=== PATIENT | female | born 1950 | race Caucasian/White ===

== ENCOUNTER 2023-12-31 15:04 | Emergency (ER) | payer OTHER ==
--- OUTSIDE RECORDS SUMMARY | 2023-12-31 15:08 | XMS REPORT | Continuity of Care Document ---
Author Name Unknown Address [address] [facility]. [address] [place] [address] [facility] thconnect Address [address] [facility] [address] [place] [address] Care Team Providers Care Communications Systems Engineer Name Role Phone BRYCE MCDERMOTT Primary Care Physician Unavailab Bryce See Attending Clinician Unavailable ANU ENAMORADO Attending Clinician Unavailable ANU ENAMORADO Attending Clinician Unavailable Thomas Medina Attending Clinician UnavailSMOOTH Shaw Attending Clinician Unavailnicky [place] DIRECTOR OF SPORTS PERFORMANCE, Smooth Attending Clinician [phone] Unknown, Attending Attending Clinician UnavailSherin Orellana PA-C Attending Clinician [phone] SHERIN LEWIS Attending Clinician Unavailable Doctor Unassigned, [place] Attending Clinician U JOSE RAMON Potter Attending Clinician Jose Ramon De La Rosa MD Attending Clinician + [phone] Abby Sinclair Attending Clinician [phone] ABBY LEMON Attending Clinician Unavailable Brayden Miranda MA Attending Clinician Berna Sanders RN, Melany Ornelas Attending Clinician Unavailab Antony Brower Db Test Attending Clinician UnavailBrayden Flores MD Attending Clinician [phone] BRAYDEN SUÁREZ Attending Clinician Unavailable Bob Delarosa Attending Clinician Unavailab JAY Barrientos Attending Clinician Unavail able Nurse, [facility] Pob Immunization Attending Clinician Unavailable Jay Velasquez DO Attending Clinician [phone] CAITLIN CERVANTES Attending Clinician Unavailable Caitlin Cervantes MD Attending Clinician [phone] Linda Larose MA Attending Clinician Unavailnicky Trivedi RN, Enedina Shaikh Attending Clinician Unavailnicky Bergeron, [facility] Fam Pob I Attending Clinician Unavailab Kellie Xiong Attending Clinician [phone] JAGDISH COVINGTON Attending Clinician Unavailable KELLIE HSU Attending Clinician Unavailable Vero DIRECTOR OF SPORTS PERFORMANCE, Cyn Attending Clinician [phone] Danni Rajput Attending Clinician + [phone] DANNI ARANGO Attending Clinician Unavailab Dora Castillo Attending Clinician [phone] DORA BAEZ Attending Clinician Unavailable Only, Web Test Attending Clinician Unavailable Jagdish Covington MD Attending Clinician [phone] BRYCE MCDERMOTT Admitting Clinician Unavailable ANU ENAMORADO Admitting Clinician Unavailable JOSE RAMON FULTON Admitting Clinician Jose Ramon De La Rosa MD Admitting Clinician + [phone] Payers Payer Name Policy Type Policy Number Effective Date Expirati on Date Source WELLJOSH/VIDYA MCARE ADV CHOICE PPO [id number] 2020 00:00:00 Problems Condition Name Condition Details Condition Category Status Onset Date Resolution Date Last Treatment Date Treating Clinician Comments Source No known active problems No known active problems Disease [facility] Allergies, Adverse Reactions, Alerts Allergy Name Allergy Type Status Severity Reaction(s) Onset Date Inactive Date Treating Clinician Comments Source NO KNOWN ALLERGIE S Drug Class Active [facility] Social History Social Habit Start Date Stop Date Quantity Comments Source History SDOH Alcohol Std Drinks [facility] History SDOH Alcohol Binge [facility] Gender identity [facility] Sexual orientation [facility] History SDOH Alcohol Frequency [facility] Alcohol intake 2023-02-06 00:00:00 2023-02-06 00:00:00 .29 /d [facility] History of Social function 2022-12-31 00:00:00 2022-12-31 00:00:00 [facility] Exposure to SARS-CoV-2 (event) 2021-12-15 00:00:00 2021-12-25 08:41:00 Not sure [facility] Tobacco use and exposure 2021-10-12 00:00:00 2021-10-12 00:00:00 Smokeless tobacco non-user [facility] Alcohol Comment 2020-12-11 00:00:00 2020-12-11 00:00:00 glass of wine x's 2 days a week [facility] Sex Ass[birth year] At 1950 00:00:00 1950 00:00:00 [facility] Smoking Status Start Date Stop Date Source Tobacco smoking consumption unknown [facility] Never smoked tobacco [facility] Medications Ordered Medication Name Filled Medication Name Start Date Stop Date Current Medication? Ordering Clinician Indication Dosage Frequency Signature (SIG) Comments Components Source ALBUTEROL INHALE 2022-02 07:57: 09 12-24 00:00 :00 No Inhale. [facility] dexamethaso ne (DECADRON) injection 10 mg 2022-02 17:00: 00 12-21 16:12 :00 No [id number] 10mg [facility] triamcinolo ne acetonide 0.1 % cream 2022-02 00:00: 00 12-31 00:00 :00 No [id number] Apply to area(s) 2 (two) times daily. [facility] hydrOXYzine 50 mg tablet 2022-02 00:00: 00 12-29 05:59 :00 No [id number] 50mg Take 1 tablet by mouth 3 (three) times daily as needed for Itching for up to 7 days. [facility] levothyroxi ne 25 mcg tablet 2022-02 0-04 00:00: 00 Yes 25ug Take 1 tablet by mouth. [facility] ibuprofen 400 mg tablet 8-10 00:00: 00 Yes [id number] 400mg Take 1 tablet by mouth every 8 (eight) hours as needed for Pain (scale 4-6). [facility] cetirizine 10 mg tablet 8-10 00:00: 00 12-31 00:00 :00 No [id number] 10mg Take 1 tablet by mouth in the morning. [facility] bromphenira mine-pseudo ephedrine-D M (BROMFED DM) 2-30-10 mg/5 mL syrup 09-26 00:00: 00 12-24 00:00 :00 No [id number] 5mL Take 5 mL by mouth 3 (three) times daily as needed for Cold symptoms. [facility] ALBUTEROL INHALE 2021-02 1 09:03: 37 Yes Inhale. [facility] lactated ringers IV infusion 1,000 mL 2021-02 020 16:15: 00 12-06 16:00 :00 No 1000mL at 42 mL/hr, 1,000 mL, IV Infusion, ONCE, 1 dose, On Jackelyn 12/06/21 at 1115, Routine, [facility] Pre-op [facility] ALBUTEROL INHALE 2021-02 020 13:29: 28 Yes Inhale. [facility] ALBUTEROL INHALE 10-12 12:36: 39 Yes Inhale. [facility] ALBUTEROL INHALE 2020-02 105 09:42: 26 Yes Inhale. [facility] desoximetas one 0.25 % cream 2020-02 0 00:00: 00 Yes [facility] Immunizations Ordered Immunization Name Filled Immunization Name Date Status Comments Source SARS-COV-2 COVID-19 PFIZER VACCINE 2021-01-05 00:00:00 Completed [facility] SARS-COV-2 COVID-19 PFIZER VACCINE 2021-01-05 00:00:00 Completed [facility] SARS-COV-2 COVID-19 PFIZER VACCINE 2021-01-05 00:00:00 Completed [facility] SARS-COV-2 COVID-19 PFIZER VACCINE 2021-01-05 00:00:00 Completed [facility] SARS-COV-2 COVID-19 PFIZER VACCINE 2021-01-05 00:00:00 Completed [facility] SARS-COV-2 COVID-19 PFIZER VACCINE 2021-01-05 00:00:00 Completed [facility] SARS-COV-2 COVID-19 PFIZER VACCINE 2021-01-05 00:00:00 Completed [facility] SARS-COV-2 COVID-19 PFIZER VACCINE 2021-01-05 00:00:00 Completed [facility] SARS-COV-2 COVID-19 PFIZER VACCINE 2021-01-05 00:00:00 Completed [facility] SARS-COV-2 COVID-19 PFIZER VACCINE 2021-01-05 00:00:00 Completed [facility] SARS-COV-2 COVID-19 PFIZER VACCINE 2021-01-05 00:00:00 Completed [facility] SARS-COV-2 COVID-19 PFIZER VACCINE 2021-01-05 00:00:00 Completed [facility] Influenza Virus Vaccine,quad Im,preserve Free 2020-12-22 00:00:00 Completed [facility] Influenza Virus Vaccine,quad Im,preserve Free 2020-12-22 00:00:00 Completed [facility] Influenza Virus Vaccine,quad Im,preserve Free 652020-12-22 00:00:00 Completed [facility] Influenza Virus Vaccine,quad Im,preserve Free 2020-12-22 00:00:00 Completed [facility] Influenza Virus Vaccine,quad Im,preserve Free 652020-12-22 00:00:00 Completed [facility] Influenza Virus Vaccine,quad Im,preserve Free 2020-12-22 00:00:00 Completed [facility] Influenza Virus Vaccine,quad Im,preserve Free 652020-12-22 00:00:00 Completed [facility] Influenza Virus Vaccine,quad Im,preserve Free 2020-12-22 00:00:00 Completed [facility] Influenza Virus Vaccine,quad Im,preserve Free 65+ 2020-12-22 00:00:00 Completed [facility] Influenza Virus Vaccine,quad Im,preserve Free 652020-12-22 00:00:00 Completed [facility] Influenza Virus Vaccine,quad Im,preserve Free 65+ 2020-12-22 00:00:00 Completed [facility] Influenza Virus Vaccine,quad Im,preserve Free 652020-12-22 00:00:00 Completed [facility] SARS-COV-2 COVID-19 NORMA/J&J VACCINE 2020-05-02 00:00:00 Completed [facility] SARS-COV-2 COVID-19 NORMA/J&J VACCINE 2020-05-02 00:00:00 Completed [facility] SARS-COV-2 COVID-19 NORMA/J&J VACCINE 2020-05-02 00:00:00 Completed [facility] SARS-COV-2 COVID-19 NORMA/J&J VACCINE 2020-05-02 00:00:00 Completed [facility] SARS-COV-2 COVID-19 NORMA/J&J VACCINE 2020-05-02 00:00:00 Completed [facility] SARS-COV-2 COVID-19 NORMA/J&J VACCINE 2020-05-02 00:00:00 Completed [facility] SARS-COV-2 COVID-19 NORMA/J&J VACCINE 2020-05-02 00:00:00 Completed [facility] SARS-COV-2 COVID-19 NORMA/J&J VACCINE 2020-05-02 00:00:00 Completed [facility] SARS-COV-2 COVID-19 NORMA/J&J VACCINE 2020-05-02 00:00:00 Completed [facility] SARS-COV-2 COVID-19 NORMA/J&J VACCINE 2020-05-02 00:00:00 Completed [facility] SARS-COV-2 COVID-19 NORMA/J&J VACCINE 2020-05-02 00:00:00 Completed [facility] SARS-COV-2 COVID-19 NORMA/J&J VACCINE 2020-05-02 00:00:00 Completed [facility] Influenza High Dose Quad 2019-12-23 00:00:00 Completed [facility] Influenza High Dose Quad 2019-12-23 00:00:00 Completed [facility] Influenza High Dose Quad 2019-12-23 00:00:00 Completed [facility] Influenza High Dose Quad 2019-12-23 00:00:00 Completed [facility] Influenza High Dose Quad 2019-12-23 00:00:00 Completed [facility] Influenza High Dose Quad 2019-12-23 00:00:00 Completed [facility] Influenza High Dose Quad 2019-12-23 00:00:00 Completed [facility] Influenza High Dose Quad 2019-12-23 00:00:00 Completed [facility] Influenza High Dose Quad 2019-12-23 00:00:00 Completed [facility] Influenza High Dose Quad 2019-12-23 00:00:00 Completed [facility] Influenza High Dose Quad 2019-12-23 00:00:00 Completed [facility] Influenza High Dose Quad 2019-12-23 00:00:00 Completed [facility] Influenza High Dose Quad Unknown Completed [facility] Influenza High Dose Quad Unknown Completed [facility] SARS-COV-2 COVID-19 NORMA/J&J VACCINE Unknown [facility] Influenza Virus Vaccine,quad Im,preserve Free 65+ (FLUAD) Unknown Completed [facility] SARS-COV-2 COVID-19 PFIZER VACCINE Unknown Completed [facility] Influenza High Dose Quad Unknown Completed [facility] SARS-COV-2 COVID-19 NORMA/J&J VACCINE Unknown Completed [facility] Influenza Virus Vaccine,quad Im,preserve Free 65+ (FLUAD) Unknown Completed [facility] SARS-COV-2 COVID-19 PFIZER VACCINE Unknown Completed [facility] Influenza High Dose Quad Unknown Completed [facility] SARS-COV-2 COVID-19 NORMA/J&J VACCINE Unknown Completed [facility] Influenza Virus Vaccine,quad Im,preserve Free 65+ (FLUAD) Unknown Completed [facility] SARS-COV-2 COVID-19 PFIZER VACCINE Unknown Completed [facility] Vital Signs Vital Name Observation Time Observation Value Comments S ource Systolic blood pressure 2022-12-31 15:33:00 133 mm[Hg] [facility] Diastolic blood pressure 2022-12-31 15:33:00 67 mm[Hg] [facility] Heart rate 2022-12-31 15:33:00 73 /min Unive [facility] Body temperature 2022-12-31 15:33:00 36.06 Yoanna [facility] Respiratory rate 2022-12-31 15:33:00 17 /min [facility] Body height 2022-12-31 15:33:00 160 cm [facility] Body weight 2022-12-31 15:33:00 69.037 kg [facility] BMI 2022-12-31 15:33:00 26.96 kg/m2 [facility] Systolic blood pressure 2022-12-21 15:41:00 150 mm[Hg] [facility] Diastolic blood pressure 2022-12-21 15:41:00 77 mm[Hg] [facility] Heart rate 2022-12-21 15:40:00 81 /min Unive [facility] Body temperature 2022-12-21 15:40:00 37 Yoanna [facility] Respiratory rate 2022-12-21 15:40:00 14 /min [facility] Body height 2022-12-21 15:40:00 165.1 cm [facility] Body weight 2022-12-21 15:40:00 69.4 kg [facility] BMI 2022-12-21 15:40:00 25.46 kg/m2 [facility] Oxygen saturation in Arterial blood by Pulse oximetry 2022-12-21 15:40:00 99 /min [facility] Systolic blood pressure 2022-09-26 14:21:00 153 mm[Hg] [facility] Diastolic blood pressure 2022-09-26 14:21:00 68 mm[Hg] [facility] Heart rate 2022-09-26 14:20:00 89 /min Un[facility] Body temperature 2022-09-26 14:20:00 37.06 Yoanna [facility] Respiratory rate 2022-09-26 14:20:00 18 /min [facility] Body height 2022-09-26 14:20:00 165.1 cm [facility] Body weight 2022-09-26 14:20:00 69.446 kg [facility] BMI 2022-09-26 14:20:00 25.48 kg/m2 [facility] Oxygen saturation in Arterial blood by Pulse oximetry 2022-09-26 14:20:00 96 /min [facility] Systolic blood pressure 2021-12-25 15:02:00 132 mm[Hg] [facility] Diastolic blood pressure 2021-12-25 15:02:00 73 mm[Hg] [facility] Heart rate 2021-12-25 15:02:00 75 /min Un[facility] Body temperature 2021-12-25 15:02:00 36.83 Yoanna [facility] Respiratory rate 2021-12-25 15:02:00 18 /min [facility] Body height 2021-12-25 15:02:00 165.1 cm [facility] Body weight 2021-12-25 15:02:00 69.4 kg [facility] BMI 2021-12-25 15:02:00 25.46 kg/m2 [facility] Heart rate 2021-12-06 18:00:00 70 /min [facility] Body temperature 2021-12-06 18:00:00 36.61 Yoanna [facility] Respiratory rate 2021-12-06 18:00:00 17 /min [facility] Oxygen saturation in Arterial blood by Pulse oximetry 2021-12-06 18:00:00 100 /min [facility] Systolic blood pressure 2021-12-06 17:55:00 124 mm[Hg] [facility] Diastolic blood pressure 2021-12-06 17:55:00 64 mm[Hg] [facility] Body height 2021-11-23 17:42:00 165.1 cm [facility] weight 2021-11-23 17:42:00 68.1 kg [facility] BMI 2021-11-23 17:42:00 24.98 kg/m2 [facility] Systolic blood pressure 2021-10-12 17:37:00 114 mm[Hg] [facility] Diastolic blood pressure 2021-10-12 17:37:00 76 mm[Hg] [facility] Heart rate 2021-10-12 17:37:00 74 /min [facility] Body temperature 2021-10-12 17:37:00 37.11 Yoanna [facility] Respiratory rate 2021-10-12 17:37:00 20 /min [facility] Body height 2021-10-12 17:37:00 165.1 cm [facility] Body weight 2021-10-12 17:37:00 68.085 kg [facility] BMI 2021-10-12 17:37:00 24.98 kg/m2 [facility] Oxygen saturation in Arterial blood by Pulse oximetry 2021-10-12 17:37:00 97 /min [facility] Procedures Procedure Date / Time Performed Performing Clinician Source BI SCREENING TOMOSYNTHESIS BILATERAL 2023-02-06 15:55:00 Anu [facility] POCT MOLECULAR STREP 2022-09-26 14:18:00 Unknown, Attgloria mccabe [facility] PATIENT FINANCIAL POLICY 2022-09-26 14:11:09 Doctor Unassigned, [place] [facility] ASSIGNMENT OF BENEFITS 2021-12-25 14:40:47 Docto r Unassigned, [place] [facility] COLONOSCOPY (ENDO) 2021-12-06 16:56:24 Bryce Mcdermott [facility] PATIENT QUESTIONNAIRE 2021-12-06 05:01:00 Doctor Unassigned, [place] [facility] EXTERNAL PROVIDER RECORDS 2021-10-15 05:01:00 Doctor Unassigned, [place] [facility] POCT URINALYSIS 2021-10-12 17:48:[address] [facility] EXTERNAL PAP SMEAR 2019-09-16 10:19:00 Doctor Un assigned, [place] [facility] Encounters Start Date/Time End Date/Time Encounter Type Admission Type Attending Clinicians Care Facility Care Department Encounter ID Source 2023-11-12 11:14:01 Outpatient Bryce Mcdermott [facility] [id number] [place] [facility] 2024-01-01 15:45:00 2024-01-01 15:45:00 Outpatient R AVERYANU MARRUFO [facility] [id number] [facility] 2024-01-01 10:30:00 2024-01-01 10:30:00 Outpatient R ADANU MARRUFO [facility] [id number] [facility] 2023-05-23 11:55:00 2023-05-23 11:55:00 Outpatient Delmar Aragonory [facility] [id number] [facility] 2023-02-06 09:07:50 2023-02-06 23:59:00 Outpatient R AVERYANU MARRUFO [facility] [id number] [facility] 2023-02-06 09:07:50 2023-02-06 23:59:00 Hospital Encounter AdAnu marrufo [facility] 1..840.114 350.1.13.10 4.2.7.2.686 [id number] [facility] 2023-01-30 00:00:00 2023-01-30 00:00:00 Outpatient R ANU ENAMORADO [facility] [id number] [facility] 2022-12-31 09:30:00 2022-12-31 10:25:42 Outpatient R ANU ENAMORADO [facility] [id number] [facility] 2022-12-31 09:30:00 2022-12-31 10:25:42 Office Visit AveryAnu marrufo [facility] 1..840.114 350.1.13.10 4.2.7.2.686 [id number] [facility] 2022-12-21 10:20:00 2022-12-21 11:34:21 Outpatient R SMOOTH TIDWELL [facility] [id number] [facility] 2022-12-21 10:20:00 2022-12-21 11:34:21 Urgent Care [place] Unknown, Attending [facility] 1..840.114 350.1.13.10 4.2.7.2.686 [id number] [facility] 2022-10-01 00:00:00 2022-10-01 00:00:00 [facility]phone [facility] 1..840.114 350.1.13.10 4.2.7.2.686 [id number] [facility] 2022-09-26 09:20:00 2022-09-26 09:35:12 Outpatient R SHERIN LEWIS [facility] [id number] [facility] 2022-09-26 09:20:00 2022-09-26 09:35:12 Urgent Care Sherin Lewis Unknown, Attending [facility] 1..840.114 350.1.13.10 4.2.7.2.686 [id number] [facility] 2022-09-26 00:00:00 2022-09-26 00:00:00 Orders Only Doctor Unassigned, [place] [facility] 1.840.114 350.1.13.10 4.2.7.2.686 [id number] [facility] 2022-02-04 08:49:11 2022-02-04 23:59:00 Outpatient R ANU ENAMORADO [facility] [id number] [facility] 2022-02-04 08:49:11 2022-02-04 23:59:00 Hospital Encounter Anu Enamorado [facility] 1.0.114 350.1.13.10 4.2.7.2.686 [id number] [facility] 2021-12-25 09:00:00 2021-12-25 09:39:35 [facility] [id number] [facility] 2021-12-25 09:00:00 2021-12-25 09:39:35 Office Visit Anu Enamorado [facility] 1..114 350.1.13.10 4.2.7.2.686 [id number] [facility] 2021-12-25 00:00:00 2021-12-25 00:00:00 Orders Only Doctor Unassigned, [place] [facility] 1.0.114 350.1.13.10 4.2.7.2.686 [id number] [facility] 2021-12-06 10:45:00 2021-12-06 13:13:00 Outpatient R JOSE RAMON C[facility]Y [facility] [id number] [facility] 2021-12-06 10:45:00 2021-12-06 13:13:00 Hospital Encounter Jose Ramon Cassidy [facility] 1.114 350.1.13.10 4.2.7.2.686 [id number] [facility] 2021-12-06 00:00:00 2021-12-06 00:00:00 Orders Only Doctor Unassigned, [place] [facility] 1..114 350.1.13.10 4.2.7.2.686 [id number] [facility] 2021-12-05 07:45:00 2021-12-05 07:45:00 Outpatient R JOSE RAMON CASSIDY [facility] [id number] [facility] 2021-10-12 12:20:00 2021-10-12 12:40:00 [facility] 1.84.114 350.1.13.10 4.2.7.2.686 [id number] [facility] 2021-10-12 12:20:00 2021-10-12 12:20:00 [facility] [id number] [facility] 2021-05-04 00:00:00 2021-05-04 00:00:00 Pre Visit Outreach Brayden Miranda 1.84.114 350.1.13.10 4.2.7.2.686 [id number] [facility] 2021-02-16 00:00:00 2021-02-16 00:00:00 Letter (Out) Melany Sanders [facility] 1.114 350.1.13.10 4.2.7.2.686 [id number] [facility] 2021-02-14 16:00:00 2021-02-14 16:25:26 Laboratory Only Only, Ang Db Test Unknown, Attending Juvencio [facility] 1.84.114 350.1.13.10 4.2.7.2.686 [id number] [facility] 2021-02-14 16:00:00 2021-02-14 16:00:00 Outpatient R BRAYDEN SUÁREZ [facility] [id number] [facility] 2021-02-06 00:00:00 2021-02-06 00:00:00 Pre Visit Outreach Bob Delarosa [facility] 1.114 350.1.13.10 4.2.7.2.686 [id number] [facility] 2021-01-05 13:50:00 2021-01-05 13:50:00 Outpatient R JAY VELASQUEZ [facility] [id number] [facility] 2021-01-05 13:38:39 2021-01-05 13:39:15 Imm/Inj Visit Nurse, Nita Quezada Immunizatio Jay [facility] 1.2.840.114 350.1.13.10 4.2.7.2.686 [id number] [facility] 2020-12-22 09:30:00 2020-12-22 10:15:08 Outpatient R CAITLIN CERVANTES [facility] [id number] [facility] 2020-12-22 09:30:00 2020-12-22 10:15:08 Outpatient R CAITLIN CERVANTES [facility] [id number] [facility] 2020-12-22 09:19:21 2020-12-22 10:15:08 Office Visit Caitlin Cervantes [facility] 1.2.840.114 350.1.13.10 4.2.7.2.686 [id number] [facility] 2020-12-12 13:01:58 2020-12-12 23:59:00 Hospital Encounter Caitlin Cervantes [facility] 1.2.840.114 350.1.13.10 4.2.7.2.686 [id number] [facility] 2020-12-12 13:00:00 2020-12-12 13:00:00 Hospital Encounter Caitlin Cervantes [facility] 1.2.840.114 350.1.13.10 4.2.7.2.686 [id number] [facility] 2020-12-12 00:00:00 2020-12-12 00:00:00 Outpatient R CAITLIN CERVANTES [facility] [id number] [facility] 2020-12-11 00:00:00 2020-12-11 00:00:00 Pre Visit Outreach Linda Larose 1.114 350.1.13.10 4.2.7.2.686 [id number] [facility] 2020-10-15 00:00:00 2020-10-15 00:00:00 Telephone Enedina Trivedi [facility] 1.114 350.1.13.10 4.2.7.2.686 [id number] [facility] 2020-10-14 15:13:29 2020-10-14 15:28:29 Laboratory Only Only, Abby Darling [facility] [place]?[facility] Building 1.114 350.1.13.10 4.2.7.2.686 [id number] [facility] 2020-10-14 15:10:00 2020-10-14 15:10:00 Outpatient ABBY DEL AN[facility]EL [facility] [id number] [facility] 2020-06-06 14:52:53 2020-06-06 23:59:00 Hospital Encounter Caitlin Cervantes [facility] 1.114 350.1.13.10 4.2.7.2.686 [id number] [facility] 2020-06-06 00:00:00 2020-06-06 00:00:00 Outpatient CAITLIN ALEMAN [facility] [id number] [facility] 2020-05-05 09:31:19 2020-05-05 09:51:19 Laboratory Only Lab, Adc Fam Pob Kellie Rosales [facility] One 1.114 350.1.13.10 4.2.7.2.686 [id number] [facility] 2020-05-05 09:30:00 2020-05-05 09:30:00 Outpatient R JAGDISH C[facility] [id number] [facility] 2020-05-05 09:20:00 2020-05-05 09:20:00 Outpatient R KELLIE HSU [facility] [id number] [facility] 2020-04-21 09:54:50 2020-04-21 10:14:50 Laboratory Only Lab, Adc [facility]ob [facility] 840.114 350.1.13.10 4.2.7.2.686 [id number] [facility] 2020-04-21 10:00:00 2020-04-21 10:00:00 Outpatient R [facility] [id number] [facility] 2020-04-07 11:38:10 2020-04-07 11:58:10 Laboratory Only Lab, Adc [facility] Pilar Pham [facility] One 840.114 350.1.13.10 4.2.7.2.686 [id number] [facility] 2020-04-07 11:40:00 2020-04-07 11:40:00 Outpatient R [facility] [id number] [facility] 2020-03-23 15:33:41 2020-03-23 15:53:41 Laboratory Only Lab, Adc Terrance Russb Danni Singh [facility] One 840.114 350.1.13.10 4.2.7.2.686 [id number] [facility] 2020-03-23 15:40:00 2020-03-23 15:40:00 Outpatient R DANNI ARANGO [facility] [id number] [facility] 2020-03-11 09:50:07 2020-03-11 10:10:07 Laboratory Only Lab, [facility] Fam Pilar Baez [facility] Office Building One .114 350.1.13.10 4.2.7.2.686 [id number] [facility] 2020-03-11 09:40:00 2020-03-11 09:40:00 Outpatient R [facility] [id number] [facility] 2020-03-06 00:00:00 2020-03-06 00:00:00 Patient Secure Msg Doctor Unassigned, [facility] 1..114 350.1.13.10 4.2.7.2.686 [id number] [facility] 2020-03-04 09:18:24 2020-03-04 09:33:24 Laboratory Only Only, Web Test Jagdish [facility] 1..114 350.1.13.10 4.2.7.2.686 [id number] [facility] 2020-03-04 09:30:00 2020-03-04 09:30:00 Outpatient R JAGDISH C[facility] [id number] [facility] 2019-11-06 13:16:43 2019-11-06 13:36:43 Laboratory Only Lab, Two [facility] Fam Pilar Baez [facility] Office Building One .114 350.1.13.10 4.2.7.2.686 [id number] [facility] 2019-11-06 13:20:00 2019-11-06 13:20:00 Outpatient R [facility] [id number] [facility] 2019-11-06 00:00:00 2019-11-06 00:00:00 Orders Only Doctor Unassigned, [facility] 1.2.840.114 350.1.13.10 4.2.7.2.686 [id number] [facility] 2019-11-06 00:00:00 2019-11-06 00:00:00 Letter (Out) Doctor Unassigned, [facility] 1.2.840.114 350.1.13.10 4.2.7.2.686 [id number] [facility] Results Test Description Test Time Test Comments Results Resul t Comments Source BI SCREENING TOMOSYNTHESIS BILATERAL 2023-01-18 18:15:30 Examination:BI SCREENING TOMOSYNTHESIS BILATERAL History:Patient is 72 year old and is seen for: ?Screening. Computer-aided detection (CAD) utilized. Comparisons: 02/04/2022 BI SCREENING TOMOSYNTHESIS BILATERAL, 12/12/2020 BI SCREENING TOMOSYNTHESIS BILATERAL, and 06/06/2020 EXTERNAL MAMMOGRAM Findings:The breasts have scattered areas of fibroglandular density. There is no evidence of suspicious masses, calcifications, or other abnormal findings. Impression:No mammographic evidence of malignancy. Recommendation:Gabi al mammographic follow-up BI-RADS Category: Both 1 - Negative [facility]IFIC [id number] 17:49:00* Test Item Value Reference Range Interpretation Comme nts POCT U SP GRAV (test code = 3255) 1.005 mg/dl 1.005-1.025 POCT PH U (test code = 3254) 7 mg/dl 5-8 POCT U LEUK EST (test code = 3263) Negative Negative - Negative POCT U NIT (test code = 3262) Negative Negative - Negati ve POCT U PROT (test code = 3259) Negative Negative - Negative POCT U GLU (test code = 3256) Normal Negative - Negati ve POCT U KETONE (test code = 3258) Negative Negative - Negative POCT U UROBILI (test code = 3260) Normal 0.2-1 POCT U BILI (test code = 3261) Negative Negative - Negative POCT U BLD (test code = 3257) Negative Negative - Negati ve POCT U COLOR (test code = 3266) Yellow POCT U APPEAR (test code = 3267) Clear Lab Interpretation (test cod e = [id number]) Normal [facility] Notes Date/Time Note Provider Source 2023-06-04 14:54:00 [id number] [place] [address] PATIENT NAME: JUN BARKSDALE ADMIT DATE: 05/23/23 ACCOUNT NO: [id number] ROOM NO: AGE: 73 REPORT TYPE: ECHOCARDIOGRAM SEX: F ADMITTING PHYSICIAN: ATTENDING PHYSICIAN:Thomas Medina MD *[place] [address] Transthoracic Echocardiogram Patient: Jun Barksdale Study Date: 05/23/2023 BP: URN: [id number] Location: : 1950 Age: 73 Gender: F Height: 65 in / 165.1 cm Weight: 146 lb / 66.2 kg BMI/BSA: 24.3 kg/m 2 / 1.75 m 2 *Ordering Physician: * Thomas Medina MD *Interpreting Physician: * Thomas Medina MD *Application Helper: * Sofia Huynh Indications: SVT. Study data: Transthoracic echocardiogram. Procedure: A transthoracic echocardiogram was performed. Image quality was adequate. Complete 2D, complete spectral Doppler, and color Doppler. Location: Echo laboratory. Patient status: Outpatient. Study status: Routine. Heart rate: 66 bpm. Findings Left ventricle: The cavity size is normal. Wall thickness is normal. Systolic function is normal. The estimated ejection fraction is 65-69%. Wall motion is normal; there are no regional wall motion abnormalities. Grade I diastolic dysfunction. Right ventricle: The cavity size is normal. Systolic function is normal. PATIENT NAME: JUN BARKSDALE Left atrium: The atrium is normal in size. Right atrium: The atrium is normal in size. Aorta: Aortic root: The root is normal-sized. Aortic valve: The valve is structurally normal. The valve is trileaflet. There is no evidence of stenosis. There is no regurgitation. Mitral valve: The valve is structurally normal. There is no evidence of stenosis. There is no regurgitation. Tricuspid valve: The valve is structurally normal. There is trace regurgitation. Pulmonic valve: Not well visualized. There is trace regurgitation. Pericardium: There is no pericardial effusion. Pulmonary arteries: The main pulmonary artery is normal-sized. Systemic veins: Inferior vena cava: The IVC is normal-sized. Measurements Left ventricle Value Ref ÁNGELA, LAX 3.7 cm 3.8 - 5.2 ESD, LAX 2.5 cm 2.2 - 3.5 FS, LAX 34 % 27 - 45 IVS, ED 1.0 cm 0.6 - 0.9 PW, ED 1.0 cm 0.6 - 0.9 IVS/PW, ED 0.96 --------- EF 64 % 54 - 74 EF, MM on 2D Teich. 72 % >=55 IVRT 156 ms --------- E/e', avg, TDI 6 <=14 LVOT Value Ref Diam, S 2.17 cm --------- Area 3.7 cm 2 --------- Peak silke, S 0.87 m/sec --------- Mean silke, S 0.67 m/sec --------- VTI, S 17.3 cm --------- Peak grad, S 3 mm Hg --------- Mean grad, S 2 mm Hg --------- SV 64 ml --------- SV/bsa 36 ml/m 2 --------- Right ventricle Value Ref Pressure, S 29 mm Hg --------- Left atrium Value Ref Vol/bsa, ES, 1-p A4C 10 ml/m 2 11 - 40 Vol/bsa, ES, A/L 11 ml/m 2 16 - 34 AP dim, ES MM 3.5 cm 2.7 - 3.8 LA/Ao root ratio, MM 1.38 --------- Right atrium Value Ref Area, ES 8 cm 2 10 - 18 PATIENT NAME: JUN BARKSDALE Aortic valve Value Ref Leaflet sep, MM 1.94 cm --------- Peak v, S 1.1 m/sec --------- Mean v, S 0.81 m/sec --------- VTI, S 19.4 cm --------- Mean grad, S 3 mm Hg --------- Peak grad, S 4.9 mm Hg --------- LVOT/AV, VTI ratio 0.89 --------- MONCHO, VTI 3.28 cm 2 --------- LVOT/AV, Vpeak ratio 0.79 --------- MONCHO, Vmax 2.91 cm 2 --------- Mitral valve Value Ref Peak E 0.5 m/sec --------- Peak A 0.75 m/sec --------- Decel time 215 ms --------- PHT 54 ms --------- Peak E/A ratio 0.66 --------- MVA, PHT 4.1 cm 2 --------- Pulmonic valve Value Ref IA peak v 0.91 m/sec --------- IA peak grad 3 mm Hg --------- Tricuspid valve Value Ref TR peak v 2.5 m/sec <=2.8 Peak RV-RA grad, S 24 mm Hg --------- Aortic root Value Ref Root diam, ED MM 2.5 cm --------- Pulmonary artery Value Ref Pressure, S 26.8 mm Hg --------- Systemic veins Value Ref Estimated CVP 5 mm Hg --------- Pulmonary veins Value Ref A rev duration 125 ms --------- Conclusions Summary: 1. Left ventricle: The cavity size is normal. Wall thickness is normal. Systolic function is normal. The estimated ejection fraction is 65-69%. Wall motion is normal; there are no regional wall motion abnormalities. Grade I diastolic dysfunction. 2. Right ventricle: The RV pressure during systole is 29 mm Hg. Electronically signed by PATIENT NAME: JUN BARKSDALE Thomas Medina MD 06/04/2023 14:54 at 1454 PATIENT NAME: JUN BARKSDALE [facility] 2022-10-01 10:09:32 Formatting of this n ote might be different from the original. ATC. No answer. L/M for pt to return call. Pt was prescribed bromfed at last UC visit. Will need to f/u with PCP due to cough for 7 days. Aleyda Rhodes RN [facility] 2022-10-01 09:47:06 Formatting of this n ote might be different from the original. Pt calling wanting to know she can get a cough Medicaine prescribed to her for her bad cough. Said she hasn't gotten better since her urgent care visit on 09/26 Sylvia Hoyos [facility]
[2023-12-31] MEDS ORDERED: KETOROLAC 30 MG/ML INJ ONE (15:28)
[2023-12-31] MEDS ORDERED: ACETAMINOPHEN 500 MG TAB ONE (15:29)
--- NOTE | 2023-12-31 16:18 | RAD REPORT ---
EXAMINATION: XR LEFT ANKLE CLINICAL INDICATION: Female, 73 years old. BL lateral malleolus injury TECHNIQUE: 3 view radiograph of the left ankle were obtained. COMPARISON: No prior exam. FINDINGS: Oblique fracture of the distal fibula with moderate adjacent soft tissue swelling. Small ca lcaneal spur posteriorly.
--- NOTE | 2023-12-31 16:19 | RAD REPORT ---
EXAMINATION: XR RIGHT ANKLE CLINICAL INDICATION: . BL lateral malleolus injury TECHNIQUE:Two view radiograph of the right ankle were obtained. COMPARISON: No prior exam. FINDINGS: Transverse fracture of the distal fibula is present. Moderate adjacent soft tissue swelling . Small plantar calcaneal spur.
--- NOTE | 2023-12-31 17:30 | EDPHYS ---
Physician Documentation [facility] Name: Natalya Barksdale Age: 73 yrs Sex: Female : 1950 Arrival Date: 12/31/2023 Time: 15:04 Bed 11 Private MD: ED Physician Vincenzo Nicholson HPI: 12/30 15:23 This 73 yrs old Female presents to ER via Wheelchair with complaints of Fall ec2 Injury, Ankle Injury - BL. 15:23 Patient arrives today for evaluation of bilateral ankle injuries. Was walking down a ec2 ramp and subsequently rolled both ankles. No other trauma, denies head strike or neck pain, denies LOC. No blood thinners.. Historical: - Allergies: 15:15 No Known Allergies; ko1 - PMHx: 15:15 Hypothyroidism; ko1 - Immunization history:: Adult Immunizations up to date. - Infectious Disease History:: Denies. - Social history:: Smoking status: Patient denies any tobacco usage or history of. ROS: 15:23 Constitutional: as per hpi ec2 Exam: 15:23 Constitutional: GEN: NAD Head: atraumatic Eyes: EOMI Ears: External ears are ec2 normal. CV: regular rate LUNGS: no respiratory distress ABD: non-distended SKIN: no evidence of rashes MSK: Bilateral lateral with tenderness to palpation over the lateral malleolus as well as swelling and ecchymosis noted. Intact distal neurovascular Vital Signs: 15:12 BP 130 / 62; Pulse 69; Resp 18; Temp 98.2; Pulse Ox 99% ; ko1 MDM: 15:15 Medical Screening Exam initiated ec2 15:23 Data reviewed: vital signs, nurses notes. ED course: Patient arrives today for ec2 bilateral lateral ankle injury. Examination remarkable for ankle findings as above. Will obtain radiographs of bilateral ankles. Differential includes ankle sprain, fracture.. 12/30 15:19 Order name: Ankle Left 3 View XRAY; Complete Time: 16:20 ec2 12/30 15:19 Order name: Ankle Right 3 View XRAY; Complete Time: 16:20 ec2 12/30 16:23 Order name: Short Leg Splint; Complete Time: 17:44 ec2 12/30 16:36 Order name: Walking boot; Complete Time: 17:44 ec2 12/30 16:37 Order name: Pito. Order: splint to LLE walking boot to RLE; Complete Time: 17:44 ec2 Administered Medications: 15:41 Drug: Ketorolac IM 15 mg IM once Route: IM; Site: right deltoid; jb4 16:30 Follow up: Response: No adverse reaction; Marked relief of symptoms; Pain is decreased jb4 15:41 Drug: Acetaminophen PO 1000 mg PO once Route: PO; jb4 16:30 Follow up: Response: No adverse reaction; Marked relief of symptoms; Pain is decreased jb4 Disposition Summary: 12/31/23 17:30 Discharge Ordered Notes: Location: Home ec2 Condition: Stable ec2 Diagnosis - Distal Fibula Fracture, left ec2 - Distal Fibula Fracture, right ec2 Followup: ec2 - With: Shabbir Baeza MD - When: - Reason: Recheck today's complaints Discharge Instructions: - Discharge Summary Sheet ec2 - Nondisplaced Fibular Ankle Fracture Treated With Immobilization ec2 Forms: - Medication Reconciliation Form ec2 - Antibiotic Education ec2 - Prescription Opioid Use ec2 - Patient Portal Instructions ec2 - Leadership Thank You Letter ec2 Prescriptions: - acetaminophen-codeine 300-15 mg Oral tablet - take 1 tablet ORAL route 4 times per day; 20 tablet; Refills: 0, Product ec2 Selection Permitted Signatures: Dispatcher [employer] Stas Garza RN RN jb4 Shira Rosario RN RN ko1 Vincenzo Nicholson MD MD ec2 Corrections: (The following items were deleted from the chart) 16:36 16:23 Splint - Leg: Short Leg ordered. ec2 ec2
--- NOTE | 2023-12-31 17:30 | ER ---
Nurse's Notes [facility] Name: Natalya Barksdale Age: 73 yrs Sex: Female : 1950 Arrival Date: 12/31/2023 Time: 15:04 Bed 11 Private MD: Diagnosis: Distal Fibula Fracture, left;Distal Fibula Fracture, right Presentation: 12/30 15:12 Chief complaint: Patient states: fell down a ramp 30-45 minutes ago, bilateral ankles ko1 hurt. Coronavirus screen: At this time, the client does not indicate any symptoms associated with coronavirus-19. Ebola Screen: No symptoms or risks identified at this time. Initial Sepsis Screen: Does the patient meet any 2 criteria? No. Patient's initial sepsis screen is negative. Does the patient have a suspected source of infection? No. Patient's initial sepsis screen is negative. Risk Assessment: Do you want to hurt yourself or someone else? Patient reports no desire to harm self or others. Onset of symptoms was December 31, 2023. 15:12 Method Of Arrival: Wheelchair ko1 15:12 Acuity: BRENNON 4 ko1 Triage Assessment: 15:15 General: Appears in no apparent distress. Behavior is calm, cooperative, appropriate ko1 for age. Pain: Complains of pain in bilateral ankles. Historical: - Allergies: 15:15 No Known Allergies; ko1 - PMHx: 15:15 Hypothyroidism; ko1 - Immunization history:: Adult Immunizations up to date. - Infectious Disease History:: Denies. - Social history:: Smoking status: Patient denies any tobacco usage or history of. Screenin:00 [facility] ED Fall Risk Assessment (Adult) History of falling in the last 3 months, jb4 including since admission No falls in past 3 months (0 pts) Confusion or Disorientation No (0 pts) Intoxicated or Sedated No (0 pts) Impaired Gait Yes (1 pt) Mobility Assist Device Used Yes (1 pt) Altered Elimination No (0 pt) Score/Fall Risk Level 0 - 2 = Low Risk Maintained a safe environment. Abuse screen: Denies threats or abuse. Nutritional screening: No deficits noted. Tuberculosis screening: No symptoms or risk factors identified. Assessment: 15:45 General: Appears in no apparent distress. comfortable, Behavior is calm, cooperative, jb4 appropriate for age. Pain: Complains of pain in JAMES ankles. Neuro: Level of Consciousness is awake, alert, obeys commands, Oriented to person, place, time, situation. Cardiovascular: Patient's skin is warm and dry. Respiratory: Airway is patent Respiratory effort is even, unlabored, Respiratory pattern is regular, symmetrical. GI: No signs and/or symptoms were reported involving the gastrointestinal system. : No signs and/or symptoms were reported regarding the genitourinary system. EENT: No signs and/or symptoms were reported regarding the EENT system. Derm: Skin is intact, Skin is pink, warm \T\ dry. Musculoskeletal: Circulation, motion, and sensation intact. Range of motion: intact in all extremities, Swelling present in JAMES ankles. 18:00 Reassessment: Patient appears in no apparent distress at this time. Patient and/or jb4 family updated on plan of care and expected duration. Pain level reassessed. Patient is alert, oriented x 3, equal unlabored respirations, skin warm/dry/pink. Vital Signs: 15:12 BP 130 / 62; Pulse 69; Resp 18; Temp 98.2; Pulse Ox 99% ; ko1 ED Course: 15:07 Patient arrived in ED. ra3 15:08 Vincenzo Nicholson MD is Attending Physician. ec2 15:15 Triage completed. ko1 15:15 Arm band placed on right wrist. Patient placed in an exam room, in a wheelchair, on ko1 pulse oximetry, Patient notified of wait time. 15:45 Stas Sprague RN is Primary Nurse. jb4 16:11 Ankle Left 3 View XRAY In Process Unspecified. EDMS 16:11 Ankle Right 3 View XRAY In Process Unspecified. EDMS 17:30 Shabbir Baeza MD is Referral Physician. ec2 18:00 Patient has correct armband on for positive identification. Bed in low position. Call jb4 light in reach. Side rails up X 1. Provided Education on: Discharge instructions.. 18:00 No provider procedures requiring assistance completed. Patient did not have IV access jb4 during this emergency room visit. Administered Medications: 15:41 Drug: Ketorolac IM 15 mg IM once Route: IM; Site: right deltoid; jb4 16:30 Follow up: Response: No adverse reaction; Marked relief of symptoms; Pain is decreased jb4 15:41 Drug: Acetaminophen PO 1000 mg PO once Route: PO; jb4 16:30 Follow up: Response: No adverse reaction; Marked relief of symptoms; Pain is decreased jb4 Medication: 18:00 VIS not applicable for this client. jb4 Outcome: 17:30 Discharge ordered by . ec2 18:00 Patient left the ED. jb4 18:00 Discharged to home ambulatory, via wheelchair, with crutches, with family, jb4 18:00 Condition: stable 18:00 Discharge instructions given to patient, Instructed on discharge instructions, follow up and referral plans. medication usage, Demonstrated understanding of instructions, follow-up care, medications, splint care, Prescriptions given X 1, Signatures: Dispatcher [employer] EDStas Lara RN RN jb4 Shira Rosario RN RN ko1 Vincenzo Nicholson MD MD ec2 Madiha Carreno ra3 Corrections: (The following items were deleted from the chart) 18:02 18:02 Reassessment: Patient appears in no apparent distress at this time. Patient jb4 and/or family updated on plan of care and expected duration. Pain level reassessed. Patient is alert, oriented x 3, equal unlabored respirations, skin warm/dry/pink. jb4
[2023-12-31 18:23] VITALS: BP 130/62; TEMP 98.2; O2SAT 99
== END 2023-12-31 18:00 | disposition home or self-care (01) ==
LOC: ER 15:04
DX: S82.832A Other fracture of upper and lower end of left fibula, initial encounter for closed fracture (principal); S82.831A Other fracture of upper and lower end of right fibula, initial encounter for closed fracture